=== PATIENT | female | born 1990 | race Caucasian/White ===

== ENCOUNTER 2017-01-23 09:37 | Emergency (ER) | payer OTHER ==
[2017-01-23 09:57] VITALS: BP 110/56
--- NOTE | 2017-01-23 10:05 | UC ---
Shoulder Pain HPI - HPI Summary HPI Summary: LEFT SHOULDER PAIN X 10 DAYS. INCREASE PAIN WITH ANY MOVEMENT OR ANY LIFTING , NO KNOWN INJURY , HAS BEES SEEN AT [facility], WAS TOLD THAT SHE MOST LIKELY SPRAIN HER SHOULDER NO SWELLING, NO REDNESS, NO NECK PAIN - History of Current Complaint Chief Complaint: UCUpperExtremity Stated Complaint: LEFT SHOULDER/ARM PAIN Time Seen by Provider: 01/23/17 09:57 Hx Obtained From: Patient Hx Last Menstrual Period: 01/02/17 Onset/Duration: Gradual Onset, Lasting Days - 10, Still Present Timing: Constant Severity Initially: Moderate Severity Currently: Moderate Location Of Pain: Is Diffuse - LEFT SHOULDER Character: Aching Aggravating Factor(s): Movement, Lifting, Flexion, Extension, Internal Rotation , External Rotation Alleviating Factor(s): Rest Associated Signs And Symptoms: Positive: Negative - Allergies/Home Medications Allergies/Adverse Reactions: Allergies Allergy/AdvReac Type Severity Reaction Status Date / Time No Known Allergies Allergy Verified 01/23/17 09:47 PMH/Surg Hx/FS Hx/Imm Hx Previously Healthy: Yes - Surgical History Surgical History: Yes Surgery Procedure, Year, and Place: T&A, R knee surgery - Family History Known Family History: Negative: Diabetes - Social History Alcohol Use: Occasionally Substance Use Type: None Smoking Status (MU): Never Smoked Tobacco Review of Systems Constitutional: Negative Skin: Negative Eyes: Negative ENT: Negative Respiratory: Negative Cardiovascular: Negative Gastrointestinal: Negative Genitourinary: Negative Motor: Negative Neurovascular: Negative Musculoskeletal: Other: - LEFT SHOULDER PAIN Neurological: Negative Psychological: Negative All Other Systems Reviewed And Are Negative: Yes Physical Exam Triage Information Reviewed: Yes Appearance: Well-Appearing, No Pain Distress, Well-Nourished Vital Signs: Initial Vital Signs Temp 100.2 F 01/23/17 09:41 Pulse 70 01/23/17 09:41 Resp 18 01/23/17 09:41 BP 110/56 01/23/17 09:41 Pulse Ox 98 01/23/17 09:41 Vital Signs Reviewed: Yes Eyes: Positive: Conjunctiva Clear ENT: Positive: Normal ENT inspection, Hearing grossly normal, Pharynx normal Neck: Positive: Supple, Nontender, No Lymphadenopathy Respiratory: Positive: Chest non-tender, Lungs clear, Normal breath sounds Cardiovascular: Positive: RRR, No Murmur, Pulses Normal Musculoskeletal: Positive: Other: - LEFT SHOULDER: NO SWELLING, NO ERYTHEMA, + DIFFUSE TENDERENESS OF THE SHOULDER, + PAIN WITH ANY ROM , LIMITED STRENGTH Skin Exam: Normal Shoulder Course/Dx - Differential Dx/Diagnosis Provider Diagnoses: LEFT SHOULDER STRAIN Discharge - Discharge Plan Condition: Stable Disposition: HOME Prescriptions: Cyclobenzaprine TAB* [Flexeril 10 MG TAB*] 10 mg PO BID #20 tab Naproxen [Naproxen 500 mg] 500 mg PO Q8H PRN #20 tab PRN Reason: Pain Patient Education Materials: Rotator Cuff Injury (ED) Forms: *Work Release Referrals: Arminda Argueta MD [Medical Doctor] - 7 Days
== END 2017-01-23 10:10 | disposition home or self-care (01) ==
LOC: UCCORT 09:37
DX: S46.912A Strain of unspecified muscle, fascia and tendon at shoulder and upper arm level, left arm, initial encounter (principal); X58.XXXA Exposure to other specified factors, initial encounter; Y93.9 Activity, unspecified; Y92.9 Unspecified place or not applicable
CPT/HCPCS: 99212; G0463

== ENCOUNTER 2017-01-24 18:27 | Emergency (ER) | payer OTHER ==
[2017-01-24 18:43] VITALS: BP 115/76
--- NOTE | 2017-01-24 19:25 | UC ---
Shoulder Pain HPI - HPI Summary HPI Summary: 26 yo female with progressively worsening left shoulder pain x about 10 days NSAIDS not helping unable to sleep at night no trauma right handed had xr at [facility] scheduled to see her MD 01/29 - History of Current Complaint Chief Complaint: UCUpperExtremity Stated Complaint: LEFT SHOULDER PAIN Time Seen by Provider: 01/24/17 19:07 Hx Obtained From: Patient Hx Last Menstrual Period: 01/05/17 Onset/Duration: Gradual Onset, Lasting Days Timing: Constant Severity Initially: Mild Severity Currently: Severe Location Of Pain: Is Diffuse Pain Intensity: 8 Pain Scale Used: 0-10 Numeric Character: Aching, Spasmodic Aggravating Factor(s): Movement, Lifting, Abduction Alleviating Factor(s): Rest Associated Signs And Symptoms: Negative: Swelling, Redness, Bruising, Fever, Weakness, Numbness/Tingling Related History: Dominant Hand Right - Allergies/Home Medications Allergies/Adverse Reactions: Allergies Allergy/AdvReac Type Severity Reaction Status Date / Time No Known Allergies Allergy Verified 01/24/17 18:37 PMH/Surg Hx/FS Hx/Imm Hx Previously Healthy: Yes - Surgical History Surgical History: Yes Surgery Procedure, Year, and Place: T&A, R knee surgery - Family History Known Family History: Positive: Hypertension Negative: Diabetes - Social History Alcohol Use: Occasionally Substance Use Type: None Smoking Status (MU): Never Smoked Tobacco Review of Systems Constitutional: Negative Skin: Negative Eyes: Negative ENT: Negative Respiratory: Negative Cardiovascular: Negative Gastrointestinal: Negative Genitourinary: Negative Motor: Negative Neurovascular: Negative Musculoskeletal: Arthralgia Neurological: Negative Psychological: Negative All Other Systems Reviewed And Are Negative: Yes Physical Exam Triage Information Reviewed: Yes Appearance: Well-Appearing, No Pain Distress, Well-Nourished Vital Signs: Initial Vital Signs Temp 99.5 F 01/24/17 18:38 Pulse 86 01/24/17 18:38 Resp 16 01/24/17 18:38 BP 115/76 01/24/17 18:38 Pulse Ox 99 01/24/17 18:38 Eyes: Positive: Conjunctiva Clear ENT: Positive: Pharynx normal. Negative: Nasal congestion, Nasal drainage, Trismus, Muffled/hoarse voice Neck: Positive: Supple, Nontender, No Lymphadenopathy Respiratory: Positive: Lungs clear, Normal breath sounds, No respiratory distress, No accessory muscle use Cardiovascular: Positive: RRR, No Murmur Musculoskeletal: Positive: ROM Limited @ - left shoulder, Other: - unable to abduct >90 degrees/pain with internal and external rotation Neurological: Positive: Alert Psychological Exam: Normal Shoulder Course/Dx - Differential Dx/Diagnosis Provider Diagnoses: left shoulder tendonitis Discharge - Discharge Plan Condition: Stable Disposition: HOME Prescriptions: HYDROcodone/ACETAMIN 5-325 MG* [[place] 5-325 TAB*] 1 tab PO Q4H PRN #15 tab MDD 2 PRN Reason: Pain Patient Education Materials: Tendinitis (ED) Forms: *Work Release Referrals: Shy Conte MD [Primary Care Provider] - Additional Instructions: see your provider Sunday as planned continue current meds Use narcotic sparingly...just to help with sleep Images Front/Back of Body, Lg ([place]): 1 - tender
== END 2017-01-24 19:23 | disposition home or self-care (01) ==
LOC: UCCORT 18:27
DX: M75.92 Shoulder lesion, unspecified, left shoulder (principal)
CPT/HCPCS: 99212; G0463

== ENCOUNTER 2017-08-03 15:24 | Emergency (ER) | payer OTHER ==
--- NOTE | 2017-08-03 16:32 | UC ---
UC Dental HPI - HPI Summary HPI Summary: Pt c/o generalized poor dentition. Pt c/o gradual onset of left upper tooth tenderness and gum swelling X 3 days. Pt has appointment with new dental care provider in 3 weeks. Pt states dentist name is Dr. Goldberg in [place] (unable to find in data base) - History of Current Complaint Chief Complaint: UCDentalProblem Stated Complaint: DENTAL COMPLAINT Time Seen by Provider: 08/03/17 16:12 Hx Obtained From: Patient Hx Last Menstrual Period: 07/27/17 ?: No Onset/Duration: Gradual Onset, Lasting Days, Still Present Severity: Moderate Pain Intensity: 8 Aggravating Factor(s): Chewing Related History: Swelling - Allergies/Home Medications Allergies/Adverse Reactions: Allergies Allergy/AdvReac Type Severity Reaction Status Date / Time No Known Allergies Allergy Verified 08/03/17 16:13 Home Medications: Home Medications Ibuprofen 800 mg PO 08/03/17 [History] PMH/Surg Hx/FS Hx/Imm Hx Previously Healthy: Yes - Surgical History Surgical History: Yes Surgery Procedure, Year, and Place: T&A, R knee surgery - Family History Known Family History: Positive: Hypertension Negative: Diabetes - Social History Lives: With Family Alcohol Use: Occasionally Substance Use Type: None Smoking Status (MU): Never Smoked Tobacco Have You Smoked in the Last Year: No Review of Systems Constitutional: Negative Skin: Negative ENT: Dental Pain Respiratory: Negative Cardiovascular: Negative Gastrointestinal: Negative Genitourinary: Negative Motor: Negative Neurovascular: Negative Musculoskeletal: Negative Neurological: Negative Psychological: Negative Is Patient Immunocompromised?: No All Other Systems Reviewed And Are Negative: Yes Physical Exam Triage Information Reviewed: Yes Appearance: Pain Distress Vital Signs: Initial Vital Signs Temp 97.8 F 08/03/17 16:09 Pulse 81 08/03/17 16:09 Resp 18 08/03/17 16:09 BP 113/65 08/03/17 16:09 Pulse Ox 100 08/03/17 16:09 Vital Signs Reviewed: Yes Eye Exam: Normal ENT Exam: Normal Dental Exam: Other Dental: Positive: Percussion Tenderness @, Gross Decay/Caries @, Abscess @ - right upper back molar Neck exam: Normal Respiratory Exam: Normal Cardiovascular Exam: Normal Musculoskeletal Exam: Normal Neurological Exam: Normal Psychological Exam: Normal Skin Exam: Normal Dental Complaint Course/Dx - Differential Dx/Diagnosis Differential Diagnosis/Dx: Dental Abscess, Dental Caries Provider Diagnoses: dental abscess right upper back molar. poor dentition Discharge - Discharge Plan Condition: Stable Disposition: HOME Prescriptions: Amoxicillin PO (*) [Amoxicillin 500 MG CAP*] 500 mg PO Q8H #30 cap Magic Mouth Was-CHELY/MAAL/LIDO* 5 ml SWISH SPIT QID PRN #140 ml PRN Reason: Pain predniSONE TAB* [Deltasone TAB*] 30 mg PO DAILY #12 tab Patient Education Materials: Dental Abscess (ED) Referrals: Shy Conte MD [Primary Care Provider] - If Needed Additional Instructions: Please follow up with your new dental care provider as scheduled.
[2017-08-03 16:34] VITALS: BP 113/65
== END 2017-08-03 16:38 | disposition home or self-care (01) ==
LOC: UCCORT 15:24
DX: K04.7 Periapical abscess without sinus (principal); K02.9 Dental caries, unspecified
CPT/HCPCS: 99212; G0463

== ENCOUNTER 2017-09-14 14:08 | Emergency (ER) | payer OTHER ==
[2017-09-14 14:33] VITALS: BP 105/68
--- NOTE | 2017-09-14 14:56 | UC ---
Abdominal Pain Female HPI - HPI Summary HPI Summary: 27 yo female with nausea and vomitng since yesterday now dry heaving states there is no way she can be states she has had UTI with n/v being the only symptoms - History of Current Complaint Chief Complaint: UCGI Stated Complaint: VOMITING Time Seen by Provider: 09/14/17 14:52 Hx Obtained From: Patient Hx Last Menstrual Period: 09/08/17 Onset/Duration: Sudden Onset, Lasting Hours Timing: Constant Severity Initially: Mild Severity Currently: Moderate Pain Intensity: 0 - pain only with vomiting or dry heaves Pain Scale Used: 0-10 Numeric Location: Diffuse Radiates: No Character: Cramping Aggravating Factor(s): Other: - vomiting Alleviating Factor(s): Nothing Allergies/Adverse Reactions: Allergies Allergy/AdvReac Type Severity Reaction Status Date / Time No Known Allergies Allergy Verified 09/14/17 14:27 PMH/Surg Hx/FS Hx/Imm Hx Previously Healthy: Yes - Surgical History Surgical History: Yes Surgery Procedure, Year, and Place: T&A, R knee surgery - Family History Known Family History: Positive: Hypertension Negative: Diabetes - Social History Alcohol Use: Rare Substance Use Type: None Smoking Status (MU): Never Smoked Tobacco Have You Smoked in the Last Year: No Review of Systems Constitutional: Negative Skin: Negative Eyes: Negative ENT: Negative Respiratory: Negative Cardiovascular: Negative Gastrointestinal: Vomiting, Nausea Genitourinary: Negative Motor: Negative Neurovascular: Negative Musculoskeletal: Negative Neurological: Negative Psychological: Negative Is Patient Immunocompromised?: No All Other Systems Reviewed And Are Negative: Yes Physical Exam Triage Information Reviewed: Yes Appearance: Well-Appearing, No Pain Distress, Well-Nourished Vital Signs: Initial Vital Signs Temp 98.9 F 09/14/17 14:28 Pulse 62 09/14/17 14:28 Resp 18 09/14/17 14:28 BP 105/68 09/14/17 14:28 Pulse Ox 97 09/14/17 14:28 Vital Signs Reviewed: Yes Eyes: Positive: Conjunctiva Clear ENT: Positive: Hearing grossly normal, Uvula midline. Negative: Nasal congestion, Nasal drainage, Trismus, Muffled voice Neck: Positive: Supple, Nontender Respiratory: Positive: Lungs clear, Normal breath sounds, No respiratory distress Cardiovascular: Positive: RRR Abdomen Description: Positive: No Organomegaly, Soft. Negative: Nontender - slight epigastric tenderness, CVA Tenderness (R), CVA Tenderness (L) Musculoskeletal: Positive: ROM Intact, No Edema Neurological: Positive: Alert Psychological Exam: Normal Skin Exam: Normal Abd Pain Female Course/Dx - Differential Dx/Diagnosis Provider Diagnoses: acute nausea/vomitng, ? cause. ? UTI Discharge - Sign-Out/Discharge Documenting (check all that apply): Discharge - Discharge Plan Condition: Stable Disposition: HOME Prescriptions: Cephalexin CAP* [Keflex CAP*] 500 mg PO BID #10 cap Ondansetron TAB* [Zofran Tab*] 4 mg PO Q6H PRN #10 tab PRN Reason: Nausea Patient Education Materials: Acute Nausea and Vomiting (ED) Referrals: Shy Conte MD [Primary Care Provider] - 3 Days (if not better) Additional Instructions: a urine culture is pending recheck for new or worsening symptoms - Billing Disposition and Condition Condition: STABLE Disposition: HOME
[2017-09-14] MEDS ORDERED: Ondansetron ODT TAB* 4 MG PO ONE (14:57)
== END 2017-09-14 15:28 | disposition home or self-care (01) ==
LOC: UCCORT 14:08
DX: R11.2 Nausea with vomiting, unspecified (principal); R10.816 Epigastric abdominal tenderness
CPT/HCPCS: 81003; 87086; 99212; A9270-GY; G0463

== ENCOUNTER 2018-01-11 13:41 | Emergency (ER) | payer OTHER ==
[2018-01-11 13:57] VITALS: BP 156/108
[2018-01-11] MEDS ORDERED: NS 0.9% 1000 ML* 1,000 ML BOLUS ONE (14:06)
--- NOTE | 2018-01-11 14:27 | UC ---
Abdominal Pain Female HPI - HPI Summary HPI Summary: The patient is a 27-year-old female that presents here with the abrupt onset of right flank pain that started about 5:30 this a.m. She has had no fever or chills. She has had nausea she states she is about 12 weeks . She has not seen an OB for her first OB visit yet. She states she was at the [facility] emergency room for 4 hours and had not yet been seen so she decided to come here. She has no history of kidney stones. - History of Current Complaint Chief Complaint: UCGU Stated Complaint: BACK PAIN () Time Seen by Provider: 01/11/18 14:02 Hx Obtained From: Patient Hx Last Menstrual Period: Mid October Onset/Duration: Sudden Onset Severity Initially: Severe Severity Currently: Severe Pain Intensity: 10 Pain Scale Used: 0-10 Numeric Location: Discrete At: RLQ Radiates to: Flank Character: Colicy, Cramping Aggravating Factor(s): Nothing Alleviating Factor(s): Nothing Associated Signs and Symptoms: Positive: Nausea Allergies/Adverse Reactions: Allergies Allergy/AdvReac Type Severity Reaction Status Date / Time No Known Allergies Allergy Verified 09/14/17 14:27 PMH/Surg Hx/FS Hx/Imm Hx Previously Healthy: Yes - Surgical History Surgical History: Yes Surgery Procedure, Year, and Place: T&A, R knee surgery - Family History Known Family History: Positive: Hypertension Negative: Diabetes - Social History Alcohol Use: None Substance Use Type: None Smoking Status (MU): Never Smoked Tobacco Have You Smoked in the Last Year: No Review of Systems Constitutional: Negative Skin: Negative Eyes: Negative ENT: Negative Respiratory: Negative Cardiovascular: Negative Gastrointestinal: Abdominal Pain, Nausea Genitourinary: Negative Motor: Negative Neurovascular: Negative Musculoskeletal: Negative Neurological: Negative Psychological: Negative Is Patient Immunocompromised?: No All Other Systems Reviewed And Are Negative: Yes Physical Exam Triage Information Reviewed: Yes Appearance: Ill-Appearing, Pain Distress Vital Signs: Initial Vital Signs Temp 97.7 F 01/11/18 13:46 Pulse 78 01/11/18 13:46 Resp 21 01/11/18 13:46 BP 156/108 01/11/18 13:46 Pulse Ox 100 01/11/18 13:46 Vital Signs Reviewed: Yes Eyes: Positive: Conjunctiva Clear ENT: Positive: Hearing grossly normal. Negative: Nasal congestion, Nasal drainage Neck: Positive: Supple, Nontender, No Lymphadenopathy Respiratory: Positive: Lungs clear, Normal breath sounds, No respiratory distress Cardiovascular: Positive: RRR, No Murmur Abdomen Description: Positive: [place]Bur[place]'s Point Tenderness, Other: - ? palpable uterus above umbilicus, (+) FHTs at 150, no ctx palpable. Negative: Nontender - markedly tender RLQ Bowel Sounds: Positive: Present Musculoskeletal: Positive: ROM Intact, No Edema Neurological: Positive: Alert Psychological Exam: Normal Skin Exam: Normal Abd Pain Female Course/Dx - Course Course Of Treatment: eam diffucult due to pt writhing in pain. unable to start IV here. D/W [facility] attending and midlevel. To ER via [facility] - Differential Dx/Diagnosis Provider Diagnoses: right sided abdominal pain. . hematuria Discharge - Sign-Out/Discharge Documenting (check all that apply): Patient Departure - Discharge Plan Condition: Guarded Disposition: TRANS HIGHER LVL OF CARE FAC Referrals: Shy Conte MD [Primary Care Provider] - - Billing Disposition and Condition Condition: GUARDED Disposition: Trans Higher Lvl of Care Fac
== END 2018-01-11 14:30 | disposition short-term general hospital (02) ==
LOC: UCCORT 13:41
DX: O26.891 Other specified pregnancy related conditions, first trimester (principal); Z3A.12 12 weeks gestation of pregnancy; R10.9 Unspecified abdominal pain; R31.9 Hematuria, unspecified
CPT/HCPCS: 81003; 84702; 87086; 99213; G0463

== ENCOUNTER 2018-03-02 09:14 | Emergency (ER) | payer OTHER ==
[2018-03-02 09:52] VITALS: BP 97/57
--- NOTE | 2018-03-02 10:21 | UC ---
Dental HPI - HPI Summary HPI Summary: Pt presents with c/o swelling to upper front gum and tooth. Pt has gross dental decay at poor dentition. Pt is and due in May. Pt was seen by PCP and was given RX for amoxicillin. Pt took two days worth of amox and then stopped taking it. Pt states "it wasn't doing anything". NOw presents with worsening swelling and pain . - History of Current Complaint Chief Complaint: UCDentalProblem Stated Complaint: FACIAL SWELLING Time Seen by Provider: 03/02/18 10:04 Hx Obtained From: Patient Hx Last Menstrual Period: Mid October ?: Yes Onset/Duration: Gradual Onset, Lasting Days, Still Present, Worse Since - onset Severity: Moderate Pain Intensity: 0 Aggravating Factor(s): Heat, Cold, Chewing Alleviating Factor(s): Nothing Related History: Swelling - Allergies/Home Medications Allergies/Adverse Reactions: Allergies Allergy/AdvReac Type Severity Reaction Status Date / Time No Known Allergies Allergy Verified 03/02/18 09:46 Home Medications: Home Medications Ped Multivit 43/Iron Fumarate [Flintstones Complete Chew Tab] 36 mg PO DAILY [History Confirmed 03/02/18] PMH/Surg Hx/FS Hx/Imm Hx Previously Healthy: Yes - Surgical History Surgical History: Yes Surgery Procedure, Year, and Place: Right Arthroscopy, 2009, [place]; T&A, ~ , [place] - Family History Known Family History: Positive: Hypertension Negative: Diabetes - Social History Occupation: Works From/At Home Lives: With Family Alcohol Use: None Substance Use Type: None Smoking Status (MU): Never Smoked Tobacco Have You Smoked in the Last Year: No Review of Systems Constitutional: Fatigue Skin: Negative Eyes: Negative ENT: Dental Pain Respiratory: Negative Cardiovascular: Negative Gastrointestinal: Negative Genitourinary: Negative Motor: Negative Neurovascular: Negative Musculoskeletal: Negative Neurological: Negative Psychological: Negative Is Patient Immunocompromised?: No All Other Systems Reviewed And Are Negative: Yes Physical Exam Triage Information Reviewed: Yes Appearance: Other: - unkempt Vital Signs: Initial Vital Signs Temp 97.9 F 03/02/18 09:44 Pulse 90 03/02/18 09:44 Resp 16 03/02/18 09:44 BP 97/57 03/02/18 09:44 Pulse Ox 100 03/02/18 09:44 Vital Signs Reviewed: Yes Eye Exam: Normal ENT Exam: Normal Dental Exam: Other Dental: Positive: Percussion Tenderness @ - front teeth, Gross Decay/Caries @, Dental Fracture @ - left front tooth Neck exam: Normal Respiratory Exam: Normal Cardiovascular Exam: Normal Musculoskeletal Exam: Normal Neurological Exam: Normal Psychological Exam: Normal Skin Exam: Normal Dental Complaint Course/Dx - Differential Dx/Diagnosis Differential Diagnosis/Dx: Dental Abscess, Fractured Tooth, Peridontic Disease Provider Diagnoses: dental abscess. dental fracture. poor dentition Discharge - Sign-Out/Discharge Documenting (check all that apply): Patient Departure All imaging exams completed and their final reports reviewed: No Studies - Discharge Plan Condition: Stable Disposition: HOME Patient Education Materials: Dental Abscess (ED) Referrals: Wendy Hodgson MD [Primary Care Provider] - Additional Instructions: Please follow up with your Dental care provider as soon as possible. If your symptoms worsen, please seek care at the closest emergency room as soon as possible. PLEASE RESUME TAKING THE PRESCRIBED AMOXICILLIN. DO NOT STOP TAKING IT UNLESS YOU HAVE AN ADVERSE REACTION OR YOU ARE INSTRUCTED TO BY A HEALTHCARE OR DENTAL CARE PROVIDER. - Billing Disposition and Condition Condition: STABLE Disposition: Home
== END 2018-03-02 10:32 | disposition home or self-care (01) ==
LOC: UCCORT 09:14
DX: K04.7 Periapical abscess without sinus (principal); M84.48XA Pathological fracture, other site, initial encounter for fracture; K08.9 Disorder of teeth and supporting structures, unspecified
CPT/HCPCS: 99211; G0463

== ENCOUNTER 2018-11-30 20:56 | Emergency (ER) | payer OTHER ==
--- OUTSIDE RECORDS SUMMARY | 2018-11-30 21:14 | XMS REPORT | Continuity of Care Document ---
:1990 External Reference #:[id number] Author Name Isabel Summers, ANUEL Address [address] [place] [id number] Care Team Providers Name Role Phone [facility] Primary Care Physician Unavailable Payers Date Identification Numbers Payment Provider Subscriber Policy Number: [id number] [facility] Hilary Esparza PayID: [id number] [address] [place] [address] Policy Number: [id number] Medicaid -[place] Hilary Esparza PayID: [id number] [address] [place] [address] Family History Date Family Member(s) Observation Comments Father Mother Alive Mother No Current Problems Social History Type Date Description Comments Sex Female Education Highest level completed, 12th grade Marital Status Legal Status: Never Tobacco Use Reviewed: 10/30/17 Never Smoked Cigars Tobacco Use Reviewed: 10/30/17 Never Smoked A Pipe Smoking Status Reviewed: 10/30/17 Never Smoked A Pipe Tobacco Use Reviewed: 10/30/17 Never Used Smokeless Tobacco ETOH Use Rarely consumes alcohol Tobacco Use Reviewed: 10/30/17 Patient has never smoked Recreational Drug Use Never Used Drugs Recreational Drug Use Teaching provided regarding Naloxone/Narcan Training Available At [facility] Tattoo/Piercing Negative For Piercings professionally done Tattoo/Piercing Negative For Tattoos professionally done Condom Use Occasionally UNKNOWN 10/30/2017 Never E-Cigarette user LUCIA: 05/06/2018 Estimated Date of Delivery Based on LMP Allergies, Adverse Reactions, Alerts Description No Known Drug Allergies Medications Active Medications SIG Qnty Indications Ordering Provider Date Nexplanon insert as 1units Z30.017 Isabel Summers, 11/21/2018 68mg Implant directed TEACHER History Medications No Active Medications Ema Clancy 10/30/2017 - 11/21/2018 Medications Administered in Office Medication SIG Qnty Indications Ordering Provider Date Plan B One-Step take one tab 1tabs Z30.012 Isabel Summers NP 11/21/2018 1.5mg today Tablets Nexplanon Device Isabel Summers NP 11/21/2018 Injection Vital Signs Date Vital Result Comment 11/21/2018 12:21pm BP Systolic 116 mmHg BP Diastolic 71 mmHg BP Systolic Recheck 125 mmHg post procedure b/p BP Diastolic Recheck 78 mmHg post procedure b/p Height 61 inches 5'1" Weight 153.00 lb BMI (Body Mass Index) 28.9 kg/m2 10/30/2017 9:10am BP Systolic 122 mmHg BP Diastolic 70 mmHg Height 61 inches 5'1" Weight 151.00 lb BMI (Body Mass Index) 28.5 kg/m2 Results Test Date Facility Test Result H/L Range Note Laboratory test 11/21/2018 [facility] Test negative finding Urine..... Laboratory test 10/30/2017 [facility] Test positive finding Urine..... Procedures Date Code Description Status 11/21/2018 05121 Insertion, Non-Biodegradable Drug Delivery Implant Completed Encounters Type Date Location Provider Dx Diagnosis Office Visit 11/21/2018 [facility] Isabel Summers NP Z30.012 Encounter for 12:00p prescription of emergency contraception Z30.017 Enctr for init prescription of implntbl subdermal contracep Z32.02 Encounter for test, result negative Z11.3 Encntr screen for infections w sexl mode of transmiss Plan of Treatment 11/21/2018 - Isabel Summers NPZ30.012 Encounter for prescription of emergency contraceptionNew Medication:Plan B One-Step 1.5 mg - take one tab todayComments: [facility] 2 days ago. Administered Plan B today in office. Reviewed use of, side effects and precautions with patient who states understanding. RTO in 2 weeks for UPT or take home UPT if menses does not occur as expected.Z30.017 Encounter for initial prescription of implantable subdermalNew Medication:Nexplanon 68 mg - insert as directedComments:UPIC 2 days ago. Plan B given today. UPT negative. Patient has chosen Nexplanon today for bc. Nexplanon inserted. Patient tolerated well. Use condoms/ BUBC x 7 days.Follow up:2 weeks upt with RN, 3 months for method check with Isabel, sooner for any concerns. Sign a release forlast PAP from [facility].Z32.02 Encounter for test, result [id number] Encounter for screening for infections with a predominantlyNew Labs:Chlamydia/N Gonorroeae Rna Tma Urogenit, Ordered: 11/21/18Comments:Reviewed STD risks and prevention with patient. Patient states understanding.
[2018-11-30 21:50] VITALS: BP 106/53
--- NOTE | 2018-11-30 22:27 | UC ---
Epistaxis Nasal HPI - HPI Summary HPI Summary: blood nose today, complaints of feeling dizzy for past hour. - History of Current Complaint Chief Complaint: UCGeneralIllness Stated Complaint: BLOODY NOSE x3 TODAY/DIZZINESS Time Seen by Provider: 11/30/18 22:12 Hx Obtained From: Patient Hx Last Menstrual Period: Mid October ?: No Onset/Duration: Sudden Onset, Lasting Hours Timing: Constant Severity Initially: Mild Severity Currently: Mild Pain Intensity: 0 Associated Signs And Symptoms: Positive: Sinus Pain, Nasal Discharge - Allergies/Home Medications Allergies/Adverse Reactions: Allergies Allergy/AdvReac Type Severity Reaction Status Date / Time No Known Allergies Allergy Verified 11/30/18 21:51 PMH/Surg Hx/FS Hx/Imm Hx Previously Healthy: Yes - Surgical History Surgical History: Yes Surgery Procedure, Year, and Place: Right Arthroscopy, 2009, [facility]; T&A, ~ , [facility] - Family History Known Family History: Positive: Hypertension Negative: Diabetes - Social History Alcohol Use: None Substance Use Type: None Smoking Status (MU): Never Smoked Tobacco Have You Smoked in the Last Year: No Review of Systems All Other Systems Reviewed And Are Negative: Yes ENT: Positive: Epistaxis Neurological: Positive: Headache Is Patient Immunocompromised?: No Physical Exam Triage Information Reviewed: Yes Appearance: Well-Appearing, Well-Nourished, Pain Distress Vital Signs: Initial Vital Signs Temp 98.5 F 11/30/18 21:47 Pulse 83 11/30/18 21:47 Resp 16 11/30/18 21:47 BP 106/53 11/30/18 21:47 Pulse Ox 100 11/30/18 21:47 Vital Signs Reviewed: Yes Eye Exam: Normal ENT: Positive: Pharyngeal erythema, TMs normal, Other - nares are very fryable and dry Dental: Positive: Gross Decay/Caries @ Neck exam: Normal Respiratory Exam: Normal Cardiovascular Exam: Normal Abdominal Exam: Normal Bowel Sounds: Positive: Present Musculoskeletal Exam: Normal Neurological Exam: Normal Psychological Exam: Normal Skin Exam: Normal Epistaxis Nasal Course/Dx - Course Course Of Treatment: hx obtained, exam performed ,meds reviewed, educated on care of nose bleeds. - Differential Dx/Diagnosis Differential Diagnosis/HQI/PQRI: Epistaxis Provider Diagnosis: Epistaxis, recurrent Discharge - Sign-Out/Discharge Documenting (check all that apply): Patient Departure All imaging exams completed and their final reports reviewed: No Studies - Discharge Plan Condition: Stable Disposition: HOME Patient Education Materials: Nosebleed (ED) Referrals: Wendy Hodgson MD [Primary Care Provider] - Additional Instructions: 1. use vaseline in the nostrils to help lubricate. 2. Don't blow your nose with force. 3 Increase your fluid intake 4. follow up if symtpoms persist - Billing Disposition and Condition Condition: STABLE Disposition: Home - Attestation Statements Provider Attestation: Per institutional requirements, I have reviewed the chart, however, I was not consulted specifically or made aware of this patient by the midlevel provider. I did not personally evaluate, interact with , or disposition this patient.
== END 2018-11-30 22:26 | disposition home or self-care (01) ==
LOC: UCCORT 20:56
DX: R04.0 Epistaxis (principal)
CPT/HCPCS: 99211; G0463